=== PATIENT | female | born 1995 | race Caucasian/White ===

== ENCOUNTER 2019-11-02 14:59 | Emergency (ER) | payer MEDICAID, OTHER ==
[~2019-11-02] VITALS: Ht 157.5 cm; Wt 87.0 kg
[2019-11-02 15:02] VITALS: BP 106/70
--- NOTE | 2019-11-02 15:56 | NUR ---
PT HAS CO HIVES ALL OVER BODY AND ITCHING. DENIES NEW FOOD, NEW SOAPS, OR ANYTHING DIFFERENT TO ROUTINE. PT NOT IN RESP DISTRESS. MEDICATED PER ORDERS
== END 2019-11-02 17:40 | disposition home or self-care (01) ==
LOC: ED 17:15
DX: O99.719 Diseases of the skin and subcutaneous tissue complicating pregnancy, unspecified trimester (principal); L50.9 Urticaria, unspecified; Z3A.00 Weeks of gestation of pregnancy not specified; Z90.49 Acquired absence of other specified parts of digestive tract
CPT/HCPCS: 99283; J7512; Q0177

== ENCOUNTER 2019-11-28 20:21 | Emergency (ER) | payer MEDICAID ==
[~2019-11-28] VITALS: Ht 160 cm; Wt 87.0 kg
--- NOTE | 2019-11-28 20:53 | NUR ---
PT REPORTS ABD CRAMPING X2 DAYS, ABOUT 10 WEEKS , DENIES VAG BLEEDING. CALL LIGHT PLACED WITHIN REACH.
[2019-11-28 21:28] LABS: BASOPHILS # (AUTO) 0.02 x10^3/uL (0-0.1); BASOPHILS % (AUTO) 0 % (0-1); EOSINOPHILS # (AUTO) 0.15 x10^3/uL (0-0.4); EOSINOPHILS % (AUTO) 1 % (1-7); LYMPHOCYTES # (AUTO) 2.48 x10^3/uL (1-3.4); LYMPHOCYTES % (AUTO) 21 % (22-44); MD NO; MEAN CORPUSCULAR HEMOGLOBIN 29.2 pg (27.0-34.8); MEAN CORPUSCULAR HGB CONC 34.4 g/dL (32.4-35.8); MEAN CORPUSCULAR VOLUME 84.8 fL (80-100); MEAN PLATELET VOLUME 7.7 fL (7.4-10.4); MONOCYTES % (AUTO) 4 % (2-9); NEUTROPHILS # (AUTO) 8.62 x10^3/uL (1.8-6.8); NEUTROPHILS % (AUTO) 74 % (42-75); PLATELET COUNT 245 x10^3/uL (130-400); RED BLOOD COUNT 4.24 x10^6/uL (3.82-5.3); RED CELL DISTRIBUTION WIDTH 14.5 % (9.6-15.2)
[2019-11-28] MEDS ORDERED: ACETAMINOPHEN 325 MG TABLET PO ONE (21:30)
[2019-11-28 21:40] LABS: MICROSCOPIC NOT IND
[2019-11-28 21:41] LABS: ALANINE AMINOTRANSFERASE 20 U/L (12-78); ANION GAP 7 mmol/L (5-15); CALCIUM 8.1 mg/dL (8.5-10.1); CHLORIDE 107 mmol/L (98-107); CREATININE 0.57 mg/dL (0.55-1.02)
--- NOTE | 2019-11-28 21:45 | NUR ---
PT IN ULTRASOUND.
[2019-11-28 21:58] LABS: ALKALINE PHOSPHATASE 65 U/L (45-117); BILIRUBIN,TOTAL 0.2 mg/dL (0.2-1.0); TOTAL PROTEIN 6.7 g/dL (6.4-8.2)
[2019-11-28] MEDS ORDERED: ACETAMINOPHEN 325 MG TABLET ONE (22:09)
--- NOTE | 2019-11-28 22:21 | NUR ---
PT BACK FROM ULTRASOUND. MEDICATED PER MAR, VSS. CALL LIGHT WITHIN REACH.
--- NOTE | 2019-11-28 22:34 | NUR ---
CALL FROM BLOOD BANK, PT IS A NEGATIVE, PER BLOOD BANK STAFF IF PT IS NOT HAVING BLEEDING NO RHOGAM IS INDICATED AT THIS TIME.
--- NOTE | 2019-11-28 22:54 | NUR ---
REPORT GIVEN TO SOFTWARE PUBLISHER.
[2019-11-28 23:27] VITALS: BP 110/56
== END 2019-11-28 23:30 | disposition home or self-care (01) ==
LOC: ED 23:19
DX: O26.891 Other specified pregnancy related conditions, first trimester (principal); N83.292 Other ovarian cyst, left side; N83.291 Other ovarian cyst, right side; Z3A.11 11 weeks gestation of pregnancy
CPT/HCPCS: 36415; 76801; 80053; 81003; 84702; 85025; 86850; 86900; 86901; 99284